=== PATIENT | male | born 1935 | race Caucasian/White ===

== ENCOUNTER 2019-03-24 05:55 | Observation (INO) | payer MEDICARE ==
[2019-03-24] MEDS ORDERED: Heparin 10,000 UNITS/1 ML VIAL ONE ×2 (06:29→07:45)
[2019-03-24 06:44] LABS: #Eosinphils 0.3 thou/uL (0.0-0.7); #Lymphocytes 1.2 thou/uL (1.20-3.40); #Monocytes 0.7 thou/uL (0.11-0.59); #Neutrophils 4.5 thou/uL (1.40-6.50); %Basophils 0.3 % (0.0-1.0); %Eosinophils 4.2 % (0.0-10.0); %Lymphocytes 18.2 % (21.0-51.0); %Monocytes 10.5 % (0.0-10.0); %Neutrophils 66.8 % (42.0-75.0); Hemoglobin 10.5 g/dL (14.0-18.0); Mean Corpuscular HGB CONC 31.8 g/dL (32.0-36.0); Mean Corpuscular Hemoglobin 28.8 pg (27.0-31.0); Mean Corpuscular Volume 90.5 fL (78.0-98.0); Mean Platelet Volume 6.2 fL (7.4-10.4); Platelet Count 324 thou/uL (130-400); RBC Distribution Width 14.5 % (11.5-14.5); Red Blood Cell (RBC) Count 3.66 mill/uL (4.70-6.10); White Blood Cell (WBC) Count 6.7 thou/uL (4.8-10.8)
[2019-03-24 06:48] LABS: INR-International Normal Ratio 1.5; PTT 38.2 SEC (22.9-36.1); Prothrombin Time 18.3 SEC (12.0-14.7)
[2019-03-24 07:01] LABS: Anion Gap 15 mmol/L (10-20); BUN (Urea Nitrogen) 16 mg/dL (8.4-25.7); Calc. Creatinine Clearance 103 mL/min (70-130); Calcium 9.4 mg/dL (7.8-10.44); Carbon Dioxide 24 mmol/L (23-31); Chloride 101 mmol/L (98-107); Estimated GFR-MDRD 71; Glucose 100 mg/dL (83-110); Potassium 4.1 mmol/L (3.5-5.1); Sodium 136 mmol/L (136-145)
[2019-03-24] MEDS ORDERED: Fentanyl 100 MCG/2 ML VIAL ONE ×2 (07:45→12:24)
[2019-03-24] MEDS ORDERED: Phenylephrine HCL 10 MG/ML VIAL ONE (07:45)
[2019-03-24] MEDS ORDERED: SUGAMMADEX SODIUM 500 MG/5 ML VIAL ONE (11:36)
[2019-03-24] MEDS ORDERED: SUGAMMADEX SODIUM 200 MG/2 ML VIAL ONE (11:36)
[2019-03-24] MEDS ORDERED: diphenhydrAMINE 25 MG CAP PO PRN (12:18)
[2019-03-24] MEDS ORDERED: Protamine Sulfate 50 MG/5 ML VIAL ONE (13:08)
[2019-03-24] MEDS ORDERED: Dexamethasone 20 MG/5 ML VIAL ONE (16:39)
[2019-03-24] MEDS ORDERED: PROPOFOL 200 MG/20 ML VIAL ONE (16:39)
[2019-03-24] MEDS ORDERED: Lidocaine 1% PF 5 ML VIAL ONE (16:39)
[2019-03-24] MEDS ORDERED: Glycopyrrolate 0.2 MG/ML 5 ML SYRINGE ONE (16:39)
[2019-03-24] MEDS ORDERED: Rocuronium Bromide 10 MG/ML (10ML VIAL) ONE (16:39)
[2019-03-24] MEDS ORDERED: PHENYLEPHRINE-NS 100 MCG/ML 10 ML SYRINGE ONE (16:39)
--- NOTE | 2019-03-24 18:37 | OP ---
DATE OF PROCEDURE: 03/24/2019 PROCEDURES PERFORMED: 1. Comprehensive electrophysiology testing with 3-dimensional mapping and ablation of atrial fibrillation. 2. Cardioactive medication infusion. 3. Intracardiac echocardiography. 4. Transseptal catheterization x2. 5. Followup testing. CLINICAL INDICATION: Chronic atrial fibrillation refractory to medications. ASA CLASSIFICATION: III. ANESTHESIA: General endotracheal anesthesia per Anesthesiology. ADDITIONAL CARDIAC MEDICATIONS: Isoproterenol 5 mcg bolus. TOTAL HEPARIN GIVEN: 19,000 units. TOTAL PROTAMINE GIVEN: 40 mg. TOTAL FLUORO TIME: Zero. TOTAL ABLATION TIME: 66 minutes and 29 seconds. ACUTE COMPLICATIONS: None apparent. METHODS: After informed consent was obtained, the patient was taken to the EP lab in a fasting state. Both groins were prepped and draped using ultrasound guidance. The femoral veins were accessed, and an 11-Montenegrin and an 8-Montenegrin sheaths placed in the left groin and two 8-Montenegrin sheaths placed in the right groin. All 8-Montenegrin sheaths were then replaced by long sheaths for catheter stability. A 10-Montenegrin echo probe was placed in the left groin and advanced to the right atrium and right ventricle for imaging. A circular and ablation catheter was placed in the right groin and advanced up to the right atrium. A 3D map was obtained at the right atrium and the coronary sinus. The patient was then anticoagulated. A 20-pole catheter was placed in left groin and advanced into the coronary sinus in the shavonne terminalis. Transseptal catheterization was performed. This was facilitated by 3D mapping, geometry as well as intracardiac echo confirmation. A 3D map was obtained at the left atrium and echo image was used to observe catheter position in contact along with position of the esophagus. A temperature probe was placed in the esophagus, co-located with a sensor catheter for visualization. This was adjusted to monitor esophageal temperature during ablation. Ablation was delivered, completing isolating all 4 pulmonary veins in the posterior wall of left atrium. Ablation completely isolating the roof and the lateral size of left atrium and complete isolation of the coronary sinus was performed. Ablation and debulking of the shavonne terminalis and the right atrial appendage were performed. Cardioversion was performed and an atrial tachycardia was seen from the left atrium, which was ablated just at the base of the appendage and right-sided isthmus flutter was seen and ablated with complete conduction block confirmed. After conclusion of the procedure, the patient was no longer inducible for arrhythmias. While the appendage was ablated, it was not isolated. RESULTS: 1. Baseline intervals: HV interval 50 milliseconds. 2. Atrial function: The patient was in coarse atrial fibrillation, complete isolation was performed at all 4 pulmonary veins posterior wall roof, lateral wall left atrium, the coronary sinus and debulking of the shavonne terminalis in the right atrial appendage. 3. Ablation was also performed completely interrupting the cavotricuspid isthmus area. 4. Ablation details. A total of 66 minutes and 29 seconds of RF was delivered to isolate the above described structures. IMPRESSION: Successful ablation and extensive ablation to address chronic atrial fibrillation. RECOMMENDATION: 23-hour observation. Job ID: [id number]
[2019-03-24 19:21] VITALS: BMI 39.2
[2019-03-24] MEDS: Colchicine 0.6 MG TAB PO SCH (20:39)
[2019-03-24] MEDS: Carvedilol 3.125 MG TAB PO SCH (20:42)
[2019-03-24] MEDS: Apixaban 5 MG TAB PO SCH (20:42)
[2019-03-24] MEDS: Potassium Chloride 20 MEQ TAB PO SCH (20:42)
[2019-03-24] MEDS: Furosemide 40 MG/4 ML VIAL SLOW IVP SCH (20:42)
[2019-03-24] MEDS ORDERED: Potassium Chloride 20 MEQ TAB PO SCH (21:00)
[2019-03-24] MEDS ORDERED: Latanoprost 0.005% Ophth Soln 2.5 ml Bottle EA EYE SCH (21:00)
[2019-03-24] MEDS ORDERED: Atorvastatin Calcium 20 MG TAB PO SCH (21:00)
--- NOTE | 2019-03-25 07:17 | EKG ---
Test Reason : PREOP Blood Pressure : / mmHG Vent. Rate : 077 BPM Atrial Rate : 072 BPM P-R Int : 000 ms QRS Dur : 096 ms QT Int : 412 ms P-R-T Axes : 000 019 026 degrees QTc Int : 466 ms Atrial fibrillation with premature ventricular or aberrantly conducted complexes Low voltage QRS Abnormal ECG No previous ECGs available Confirmed by ALVARADO MERCHANT ([id number]) on 03/25/2019 7:17:23 AM Referred By: TATIANA Confirmed By:ALVARADO MERCHANT
--- NOTE | 2019-03-25 07:23 | EKG ---
Test Reason : POST ABLATION Blood Pressure : / mmHG Vent. Rate : 068 BPM Atrial Rate : 033 BPM P-R Int : 000 ms QRS Dur : 098 ms QT Int : 436 ms P-R-T Axes : 000 009 -36 degrees QTc Int : 463 ms Atrial fibrillation with premature ventricular or aberrantly conducted complexes Low voltage QRS Nonspecific T wave abnormality , probably digitalis effect Prolonged QT Abnormal ECG When compared with ECG of 24-MAR-2019 06:54, (Unconfirmed) Nonspecific T wave abnormality, worse in Inferior leads Nonspecific T wave abnormality now evident in Anterolateral leads Confirmed by ALVARADO MERCHANT ([id number]) on 03/25/2019 7:23:07 AM Referred By: TATIANA Confirmed By:ALVARADO MERCHANT
[2019-03-25] MEDS ORDERED: Potassium Chloride 10 MEQ TAB PO SCH (08:00)
[2019-03-25] MEDS: Furosemide 40 MG/4 ML VIAL SLOW IVP SCH (08:16)
[2019-03-25] MEDS: Carvedilol 3.125 MG TAB PO SCH (08:18)
[2019-03-25] MEDS: Apixaban 5 MG TAB PO SCH (08:18)
[2019-03-25] MEDS: Colchicine 0.6 MG TAB PO SCH (08:18)
[2019-03-25] MEDS: Potassium Chloride 20 MEQ TAB PO SCH (08:18)
[2019-03-25] MEDS ORDERED: Multivit, Therapeutic 1 TAB PO SCH (09:00)
[2019-03-25] MEDS ORDERED: Fish Oil 1,000 MG CAP PO SCH (09:00)
[2019-03-25] MEDS ORDERED: Clopidogrel Bisulfate 75 MG TAB PO SCH (09:00)
[2019-03-25] MEDS ORDERED: Timolol 0.5% Ophth Soln 5 ml Bottle EA EYE SCH (09:00)
[2019-03-25] MEDS ORDERED: Ubidecarenone 50 MG CAP PO SCH (09:00)
[2019-03-25] MEDS ORDERED: Hydrochlorothiazide 25 MG TAB PO SCH (09:00)
[2019-03-25] MEDS ORDERED: Isoproterenol 0.2 MG/1 ML AMP ONE (10:23)
[2019-03-25 12:30] VITALS: BP 116/56; TEMP 98
--- NOTE | 2019-03-25 13:42 | DIS ---
DATE OF ADMISSION: 03/24/2019 DATE OF DISCHARGE: 03/25/2019 PROCEDURES PERFORMED: 1. Comprehensive electrophysiology testing with 3-dimensional mapping and ablation of atrial fibrillation. 2. Cardioactive medication infusion. 3. Intracardiac echocardiography. 4. Transseptal catheterization x2. DIAGNOSIS: Chronic atrial fibrillation, refractory to medications. ABLATION SUMMARY: Successful extensive ablation to address chronic atrial fibrillation with a total of 66 minutes and 29 seconds of RF energy delivered. The patient arrived in coarse atrial fibrillation. Complete isolation was performed at all 4 pulmonary veins, posterior wall, roof, lateral wall of the left atrium, coronary sinus and debulking of the shavonne terminalis in the right atrial appendage. SUBJECTIVE: Mr. Hampton is a pleasant 84-year-old gentleman with chronic atrial fibrillation, refractory to antiarrhythmic therapy, who underwent elective EP testing and extensive radiofrequency ablation by Dr. Guillaume on 03/24/2019. There were no intraoperative complications. He has done well following his ablation and feels very well this morning and is eager to go home. He denies any cardiac concerns or complaints today. He is not having any heart racing, palpitations, chest pain, pressure, syncope, near syncope, stroke, stroke-like symptoms, bleeding, or discomfort at the groin sites. He is not having nausea, vomiting, diarrhea, or difficulty urinating. REVIEW OF SYSTEMS: A 12-point review of systems is conducted, is negative except that listed above in HPI. OBJECTIVE: VITAL SIGNS: Temperature 98.0 degrees Fahrenheit, pulse 61, blood pressure 116/56, respirations 20, oxygen is 95% on room air. GENERAL: The patient is alert and oriented. Speech is clear. Affect is appropriate. NECK: Supple without jugular venous distention. LUNGS: Clear to auscultation bilaterally. HEART: Heart rate is irregularly irregular with crisp S1 and S2. PMI is nondisplaced. ABDOMEN: Obese, soft, and nontender without palpable masses. Hepatojugular reflux is negative. EXTREMITIES: Warm and dry to touch without clubbing, cyanosis, or edema. NEUROLOGIC: Grossly intact and nonfocal. DISCHARGE INSTRUCTIONS: No lifting more than 7 pounds or soaking baths for 1 week[address] No driving for 2 days. Continue oral anticoagulation as prescribed unless instructed, otherwise by [facility]. Followup will be in 6 weeks or sooner if symptoms dictate. See postablation discharge instructions provided for further directions. DISCHARGE MEDICATIONS: 1. Cozaar 25 mg at bedtime. 2. Benadryl 25 mg p.o. p.r.n. 3. CoQ10 of 200 mg p.o. daily. 4. Timolol optic q.a.m. 5. Potassium chloride 1 tab p.o. daily. 6. Fish oil p.o. daily. 7. Multivitamin p.o. daily. 8. Xalatan eye drops at bedtime. 9. Hydrochlorothiazide 25 mg p.o. daily. 10. Furosemide 20 mg p.o. daily. 11. Atorvastatin 20 mg at bedtime. 12. Apixaban 5 mg p.o. b.i.d. 13. Carvedilol 3.125 mg p.o. b.i.d. 14. Clopidogrel 75 mg p.o. daily. New prescriptions provided for; 1. Sucralfate 1 g p.o. q.i.d. x2 weeks. 2. Protonix 40 mg p.o. daily x1 month. 3. Colchicine 0.3 mg p.o. q.12 hours x2 weeks. Additionally, the patient may take an extra Lasix 20 mg and potassium tablet if he begins to feel fluid overloaded or short of breath post ablation. CONDITION AT DISCHARGE: Stable. Job ID: [id number]
--- NOTE | 2019-03-27 14:05 | EKG ---
Test Reason : Blood Pressure : / mmHG Vent. Rate : 071 BPM Atrial Rate : 066 BPM P-R Int : 000 ms QRS Dur : 096 ms QT Int : 424 ms P-R-T Axes : 000 015 019 degrees QTc Int : 460 ms Atrial fibrillation favored over accelerated junctional rhythm Low voltage QRS Possible Inferior infarct , age undetermined Abnormal ECG When compared with ECG of 24-MAR-2019 12:19, No significant change was found Confirmed by ALVARADO MERCHANT ([id number]) on 03/27/2019 2:05:39 PM Referred By: TATIANA Confirmed By:ALVARADO MERCHANT
== END 2019-03-25 13:55 | disposition home or self-care (01) ==
LOC: CCL 05:55 → 2SW 18:18
PROVIDERS: ADMIT Internal Medicine Cardiovascular Disease; ATTEND Internal Medicine Cardiovascular Disease
PROC: 02583ZZ Destruction of Conduction Mechanism, Percutaneous Approach (ICD-10-PCS; principal; 2019-03-24)
PROC: 02K83ZZ Map Conduction Mechanism, Percutaneous Approach (ICD-10-PCS; 2019-03-24)
PROC: 4A023FZ Measurement of Cardiac Rhythm, Percutaneous Approach (ICD-10-PCS; 2019-03-24)
PROC: 4A0234Z Measurement of Cardiac Electrical Activity, Percutaneous Approach (ICD-10-PCS; 2019-03-24)
DX: I48.2 Chronic atrial fibrillation (principal); I25.10 Atherosclerotic heart disease of native coronary artery without angina pectoris; I10 Essential (primary) hypertension; Z88.5 Allergy status to narcotic agent; Z88.8 Allergy status to other drugs, medicaments and biological substances; Z95.5 Presence of coronary angioplasty implant and graft; Z79.899 Other long term (current) drug therapy; Z79.01 Long term (current) use of anticoagulants; Z79.02 Long term (current) use of antithrombotics/antiplatelets
CPT/HCPCS: 76942; 80048; 85025; 85347 ×2; 85610; 85730; 92960; 93005 ×2; 93613; 93623; 93656; 93657; 93662; 96374; 96376; C1731; C1732 ×2; C1759; C1760; C1769; G0378; 93010; J1100; J1644; J1940; J2001; J2370; J2704; J2720; J3010